=== PATIENT | female | born 1970 | race Caucasian/White ===

== ENCOUNTER 2017-02-25 21:27 | Emergency (ER) | payer OTHER ==
[~2017-02-25] VITALS: Ht 160 cm; Wt 73.0 kg
[2017-02-25 22:24] VITALS: BP 116/58
--- NOTE | 2017-02-25 23:32 | NUR ---
Patient ambulated to bed 11. RN evaluating patient at bedside.
--- NOTE | 2017-02-25 23:35 | NUR ---
46 Y/O F W/C/O PELVIC CRAMPING PAIN X TODAY, AND ABNORMAL VAGINAL BLEEDING. LMP 01/16/17, [facility] NEG. NO OTHER S/S OF DISTRESS NOTED ER MD MADE AWARE.
[2017-02-26] MEDS ORDERED: KETOROLAC 60 MG/2 ML VIAL IM ONE (00:05)
[2017-02-26 00:14] LABS: APPEARANCE,URINE CLOUDY (CLEAR); BILIRUBIN,URINE 2+ (NEGATIVE); BLOOD, URINE 3+ (NEGATIVE); COLOR,URINE BROWN (YELLOW); LEUKOCYTE ESTERASE ,URINE NEGATIVE (NEGATIVE); NITRITE, URINE POSITIVE (NEGATIVE); PH,URINE 6.5 (5.0-9.0); UGLUCOSE NEGATIVE (NEGATIVE)
[2017-02-26 00:35] LABS: RBC,URINE TOO NUMEROUS TO COUN /HPF (0-5)
[2017-02-26] MEDS ORDERED: cefTRIAXone 1,000 MG in LIDOCAINE 1% ***ER ONLY *** 2.1 ML IM ONE (00:45)
--- NOTE | 2017-02-26 01:15 | NUR ---
Patient discharged with v/s stable. Written and verbal after care instructions given and explained. Patient alert, oriented and verbalized understanding of instructions. Ambulatory with steady gait. All questions addressed prior to discharge. ID band removed. Patient advised to follow up with PMD. Rx of MOTRIN 800MG, CIPRO 500MG given. Patient educated on indication of medication including possible reaction and side effects. Opportunity to ask questions provided and answered.
[2017-02-26 01:20] VITALS: BP 111/52
== END 2017-02-26 01:15 | disposition home or self-care (01) ==
LOC: MED 21:27
DX: N30.90 Cystitis, unspecified without hematuria (principal); N94.6 Dysmenorrhea, unspecified
CPT/HCPCS: 81001; 81025; 87086; 96372; 99284; J0696; J1885; J2001; 81002

== ENCOUNTER 2017-03-29 22:52 | Emergency (ER) | payer OTHER ==
[~2017-03-29] VITALS: Ht 160 cm; Wt 75.3 kg
[2017-03-29 22:59] VITALS: BP 118/81
--- NOTE | 2017-03-29 23:09 | NUR ---
EKG DONE IN TRIAGE. SHOWN TO DR. SMITH. PT OKAY TO WAIT IN LOBBY.
--- NOTE | 2017-03-30 00:06 | NUR ---
PT TAKEN TO BED 10.
--- NOTE | 2017-03-30 00:32 | NUR ---
PATIENT PRESENTS TO ED WITH CHEST PAIN . PT STATES SHE HAS BEEN "SICK FOR 4 DAYS" AND CHEST PAIN STARTED YESTERDAY. SKIN IS PINK/WARM/DRY; AAOX4 WITH EVEN AND STEADY GAIT; LUNGS CLEAR BL, PT HAS HAD COUGH FOR 4 DAYS; HR EVEN AND REGULAR; PATIENT STATES PAIN OF 9/10 AT THIS TIME; VSS; PATIENT POSITIONED FOR COMFORT; HOB ELEVATED; BEDRAILS UP X2; BED DOWN. ER MD MADE AWARE OF PT STATUS.
--- NOTE | 2017-03-30 00:50 | NUR ---
RESULTS BACK AND NOTED BY ERMD AND FOR D/C
--- NOTE | 2017-03-30 01:12 | NUR ---
Patient discharged with v/s stable. Written and verbal after care instructions given and explained. Patient alert, oriented and verbalized understanding of instructions. Ambulatory with steady gait. All questions addressed prior to discharge. ID band removed. Patient advised to follow up with PMD. Rx of ZOFRAN ODT 4 MG, PROMETHAZINE HYDROCHORIDE/DEXTROMETHORPHAN HYDROBROMIDE 6.25 MG-15MG given. Patient educated on indication of medication including possible reaction and side effects. Opportunity to ask questions provided and answered.
[2017-03-30 01:15] VITALS: BP 118/74
== END 2017-03-30 01:12 | disposition home or self-care (01) ==
LOC: MED 22:52
DX: J06.9 Acute upper respiratory infection, unspecified (principal)
CPT/HCPCS: 71045; 93005; 99284

== ENCOUNTER 2018-08-20 19:25 | Emergency (ER) | payer MEDICAID, OTHER ==
[~2018-08-20] VITALS: Ht 157.5 cm; Wt 72.6 kg
[2018-08-20 19:35] VITALS: BP 135/79
--- NOTE | 2018-08-20 19:38 | NUR ---
PT AMBULATED TO BED 8.
--- NOTE | 2018-08-20 19:45 | NUR ---
C/O N/V/D AND FEVER X3 DAYS. ALSO C/O DIZZINESS. AFEBRILE AT THIS TIME. DRINKING FLUIDS AT HOME. TAKING IBUPROFEN AT HOME FOR FEVER. VSS. DENIES PAIN AT THIS TIME. STATES MILD NAUSEA. STATES SHE HAS BEEN THROWING UP 2X PER HOUR AND HAVING LOOSE BM 1 X EVERY HOUR FOR THE PAST 3 DAYS. SKIN WARM AND DRY. DENIES OTHER SYMPTOMS AT THIS TIME. ERMD MADE AWARE OF CONDITION.
[2018-08-20] MEDS ORDERED: ONDANSETRON 4 MG/2 ML VIAL IVP ONE (19:50)
[2018-08-20] MEDS ORDERED: NACL 0.9% 1,000 ML IV ONE (19:50)
[2018-08-20 20:12] LABS: BASOPHILS # (AUTO) 0.1 K/uL (0.00-0.22); BASOPHILS % (AUTO) 0.5 % (0.0-2.0); EOSINOPHILS # (AUTO) 0.1 K/uL (0-0.4); EOSINOPHILS % (AUTO) 1.3 % (0.0-4.0); HEMOGLOBIN 8.6 g/dL (12.0-16.0); LYMPHOCYTES # (AUTO) 2.1 K/uL (2.5-16.5); MEAN CORPUSCULAR HEMOGLOBIN 20 pg (27-31); MEAN CORPUSCULAR HGB CONC 31 g/dL (33-37); MEAN CORPUSCULAR VOLUME 66.2 fL (80-94); MONOCYTES # (AUTO) 0.9 K/uL (0.8-1.0); MONOCYTES % (AUTO) 9.1 % (1.7-9.3); NEUTROPHILS # (AUTO) 7.2 K/uL (1.8-7.7); NEUTROPHILS % (AUTO) 69.1 % (42.2-75.2); PLATELET COUNT (AUTO) 234 K/uL (140-450); RED BLOOD CELL COUNT(AUTO) 4.24 MIL/uL (4.20-5.40); WHITE BLOOD COUNT (AUTO) 10.4 K/uL (4.8-10.8)
[2018-08-20 20:22] LABS: CARBON DIOXIDE 24.6 mmol/L (21-32); CREATININE 0.7 mg/dL (0.6-1.3); POTASSIUM 3.6 mmol/L (3.5-5.1)
[2018-08-20 20:29] LABS: ALBUMIN 3.9 g/dL (3.4-5.0); TOTAL BILIRUBIN 0.7 mg/dL (0.0-1.0)
[2018-08-20] MEDS ORDERED: KETOROLAC 30 MG/ML VIAL IVP ONE (20:40)
[2018-08-20 21:14] VITALS: BP 135/79
--- NOTE | 2018-08-20 21:15 | NUR ---
Patient discharged with v/s stable. Written and verbal after care instructions given and explained. Patient alert, oriented and verbalized understanding of instructions. Ambulatory with to car. All questions addressed prior to discharge. ID band removed. Patient advised to follow up with PMD. Rx of ZOFRAN, MOTRIN given. Patient educated on indication of medication including possible reaction and side effects. Opportunity to ask questions provided and answered.
== END 2018-08-20 21:15 | disposition home or self-care (01) ==
LOC: MED 19:25
DX: K52.9 Noninfective gastroenteritis and colitis, unspecified (principal); D64.9 Anemia, unspecified
CPT/HCPCS: 36415; 74022; 80053; 83690; 85025; 96361; 96374; 96375; 99284; J1885; J2405; J7030

== ENCOUNTER 2019-09-21 14:49 | Emergency (ER) | payer SELFPAY ==
[~2019-09-21] VITALS: Ht 154.9 cm; Wt 77.1 kg
[2019-09-21 15:31] VITALS: BP 119/70
--- NOTE | 2019-09-21 15:38 | NUR ---
FAMILY MEMER TEST POSITIVE X LAST WEEK C/O CHILLS COUGH, CONGESTIONS
[2019-09-21 16:47] VITALS: BP 119/70
--- NOTE | 2019-09-21 16:48 | NUR ---
Patient discharged with v/s stable. Written and verbal after care instructions given and explained. Patient alert, oriented and verbalized understanding of instructions. Ambulatory with steady gait. All questions addressed prior to discharge. ID band removed. Patient advised to follow up with PMD. Rx of PROMETHAZINE 6.25MG, VENTOLIN 90MCG, IBUPROFEN 800MG AND PREDNISONE 20MG given. Patient educated on indication of medication including possible reaction and side effects. Opportunity to ask questions provided and answered.
== END 2019-09-21 16:48 | disposition home or self-care (01) ==
LOC: MED 14:49 → EEVIPCON 14:49 → MED 16:48
DX: B34.9 Viral infection, unspecified (principal); Z20.828 Contact with and (suspected) exposure to other viral communicable diseases; J45.909 Unspecified asthma, uncomplicated
CPT/HCPCS: 99283; U0003